=== PATIENT | female | born 1960 | race Caucasian/White ===

== ENCOUNTER 2020-03-06 06:25 | Day surgery (SDC) | payer MEDICAID ==
[2020-03-06] MEDS ORDERED: Midazolam 1 MG/ML 2 ML SDV ONE (07:01)
[2020-03-06] MEDS ORDERED: Propofol 200 MG/20 ML SDV ONE (07:01)
[2020-03-06] MEDS ORDERED: fentaNYL 100 MCG/2 ML SDV ONE (07:01)
[2020-03-06] MEDS ORDERED: Sodium Chloride 0.9% 1,000 ML IV SCH (07:30)
[2020-03-06 09:06] VITALS: BP 110/61; PULSE 96
--- NOTE | 2020-03-06 13:22 | OR ---
DATE OF PROCEDURE: 03/06/2020 SURGEON: Musa Keith MD PROCEDURE: Colonoscopy. FINDINGS: A transverse colon polyp of approximately 8 mm, completely removed using hot snare wire device. COMPLICATION: None. POWER PLANT MECHANIC: None. PREOPERATIVE DIAGNOSIS: Screening colonoscopy. POSTOPERATIVE DIAGNOSIS: Screening colonoscopy. RISKS: Risks, benefits, alternatives, and limitations including, but not limited to, infection, bleeding, and perforation were explained to the patient, who wished to proceed. PROCEDURE IN DETAIL: The patient was placed in left lateral decubitus position. Digital rectal exam was performed without abnormality. Scope was introduced and advanced atraumatically to the ileocecal valve. A photo was taken. The scope was brought back through the ascending, transverse, descending colon, and retroflexed. No diverticulosis. No old or new blood. Within the transverse colon, the aforementioned polyp was identified and completely removed as described above. No abnormal bleeding after removal. No abnormalities on retroflexion. The patient tolerated the procedure well. Musa Keith MD /[id number]
== END 2020-03-06 09:15 | disposition home or self-care (01) ==
LOC: JP.SDS 06:25
PROVIDERS: ATTEND Surgery
DX: Z12.11 Encounter for screening for malignant neoplasm of colon (principal); D12.3 Benign neoplasm of transverse colon; J44.9 Chronic obstructive pulmonary disease, unspecified; F17.200 Nicotine dependence, unspecified, uncomplicated; E78.5 Hyperlipidemia, unspecified; I10 Essential (primary) hypertension; Z88.2 Allergy status to sulfonamides
CPT/HCPCS: 45385; J2250; J2704; J3010; J7030

== ENCOUNTER 2020-08-18 09:46 | Emergency (ER) | payer MEDICAID ==
[2020-08-18 10:05] VITALS: BP 148/88; PULSE 90
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
--- NOTE | 2020-08-18 11:09 | CR ---
CHEST: 2 view CLINICAL HISTORY:Dyspnea COMPARISON:CT 2015 FINDINGS: Lungs are mildly hyperaerated. Heart and pulmonary vascular normal. There are atherosclerotic changes in the aorta. No infiltrates are seen. There is blunting of both lateral costophrenic angles which is likely due to pleural thickening. Impression: Hyperaeration Pleural scarring or thickening in both lung bases.
[2020-08-18] MEDS ORDERED: methylPREDNISolone Sodium Succinate 125 MG/2 ML SDV IVPUSH ONE (11:45)
== END 2020-08-18 12:16 | disposition home or self-care (01) ==
LOC: JP.ED 09:46
DX: J44.9 Chronic obstructive pulmonary disease, unspecified (principal); I25.10 Atherosclerotic heart disease of native coronary artery without angina pectoris; F17.200 Nicotine dependence, unspecified, uncomplicated; E78.00 Pure hypercholesterolemia, unspecified; I10 Essential (primary) hypertension; Z79.899 Other long term (current) drug therapy; Z88.6 Allergy status to analgesic agent; Z88.2 Allergy status to sulfonamides; Z95.5 Presence of coronary angioplasty implant and graft; Z59.0 Homelessness
CPT/HCPCS: 36415; 71046; 80048; 84484; 85025; 85379; 96374; 99284; 99285; J2930

== ENCOUNTER 2024-06-22 03:01 | Emergency (ER) | payer MEDICARE ==
[2024-06-22 03:06] LABS: BASE EXCESS VENOUS 1.9 mm/L; BASOPHILS ABSOLUTE AUTO 0.05 K/uL (0.00-0.10); BASOPHILS PERCENT AUTO 0.7 % (0.1-1.3); BICARBONATE,VENOUS 27.1 mmol/L; CARBOXYHEMOGLOBIN 2.2 % (0.0-1.6); EOSINOPHILS ABSOLUTE AUTO 0.15 K/uL (0.00-0.40); HEMATOCRIT 41.3 % (34.3-46.0); HEMOGLOBIN 14.6 g/dL (11.2-15.5); IMMATURE GRAN ABSOLUTE AUTO 0.06 K/uL (0.00-0.23); IMMATURE GRAN PERCENT AUTO 0.8 % (0.0-0.7); LYMPHOCYTES ABSOLUTE AUTO 2.15 K/uL (0.8-3.3); LYMPHOCYTES PERCENT AUTO 28.6 % (11.4-47.7); MEAN CORPUSCULAR HEMOGLOBIN 35.7 pg (31.6-35.5); MEAN CORPUSCULAR HGB CONC 35.4 g/dL (31.6-35.5); METHEMOGLOBIN 0.9 %; MONOCYTES ABSOLUTE AUTO 0.85 K/uL (0.20-0.90); MONOCYTES PERCENT AUTO 11.3 % (3.3-12.6); NEUTROPHILS ABSOLUTE AUTO 4.27 K/uL (1.0-7.6); NEUTROPHILS PERCENT AUTO 56.6 % (40.0-78.1); O2 SATURATION VENOUS 67.5; OXYHEMOGLOBIN 65.4 %; PCO2 VENOUS 46.4 mm/Hg; PH,VENOUS 7.384 (7.350-7.450); PLATELET COUNT,PLT 146 K/uL (130-375); PO2 VENOUS 41.4 mm/Hg; RED BLOOD CELL COUNT 4.09 M/uL (3.77-5.24); TOTAL HEMOGLOBIN 15.2 g/dL (12.0-16.0); WHITE BLOOD CELL COUNT,WBC 7.5 K/uL (3.2-11.0)
[2024-06-22] MEDS ORDERED: Propofol 200 MG/20 ML SDV ONE (03:08)
[2024-06-22 03:27] LABS: BLOOD UREA NITROGEN,BUN 4 mg/dL (7-18); CALCIUM 9.3 mg/dL (8.5-10.1); CARBON DIOXIDE,CO2 28 mmol/L (21-32); CHLORIDE,CL 94 mmol/L (100-108); CREATININE 0.5 mg/dL (0.6-1.0); ESTIMATED GFR 103 mL/min (>60); GLUCOSE RANDOM 99 mg/dL (74-106); POTASSIUM,K 3.6 mmol/L (3.6-5.2); SODIUM,NA 134 mmol/L (140-148); TROPONIN I HIGH SENSITIVITY 40.1 pg/mL (<=60.3)
[2024-06-22 03:28] LABS: ANION GAP 15.6 mmol/L (5.0-14.0)
[2024-06-22] MEDS ORDERED: Naloxone 0.4 MG/ML SDV IVPUSH PRN (03:56)
[2024-06-22] MEDS: HYDROmorphone 0.5 MG/0.5 ML Syringe IVPUSH ONE (04:00)
[2024-06-22] MEDS: Ondansetron 4 MG/2 ML SDV IVPUSH ONE ×2 (04:05→08:08)
[2024-06-22] MEDS: Ondansetron 4 MG/2 ML SDV ONE (04:08)
[2024-06-22] MEDS: Iopamidol 755 Mg/ML 100 ML Bottle IV STA (04:14)
[2024-06-22] MEDS: Sodium Chloride 0.9% 100 ML IV STA (04:15)
[2024-06-22 06:02] LABS: INR 1.1; PROTHROMBIN TIME 10.8 sec (9.2-10.6)
[2024-06-22] MEDS: Apixaban 5 MG Tab PO ONE (06:06)
[2024-06-22 06:08] LABS: A/G RATIO 1.1 (1.2-2.2); ALBUMIN 3.5 g/dL (3.4-5.0); BILIRUBIN DIRECT 0.38 mg/dL (0.0-0.2); BILIRUBIN INDIRECT 0.62; PROTEIN TOTAL,TP 6.6 g/dL (6.4-8.2)
[2024-06-22 07:44] VITALS: PULSE 97
[2024-06-22] MEDS: Prochlorperazine 10 MG/2 ML SDV IVPUSH ONE (09:41)
[2024-06-22 09:56] VITALS: BP 157/81
== END 2024-06-22 11:02 | disposition home or self-care (01) ==
LOC: JP.ED 03:01
DX: I48.91 Unspecified atrial fibrillation (principal); I25.10 Atherosclerotic heart disease of native coronary artery without angina pectoris; I10 Essential (primary) hypertension; E78.00 Pure hypercholesterolemia, unspecified; J44.9 Chronic obstructive pulmonary disease, unspecified; F17.210 Nicotine dependence, cigarettes, uncomplicated; Z86.16 Personal history of COVID-19; Z90.49 Acquired absence of other specified parts of digestive tract; Z90.722 Acquired absence of ovaries, bilateral; Z95.5 Presence of coronary angioplasty implant and graft; Z88.2 Allergy status to sulfonamides; Z88.6 Allergy status to analgesic agent; Z79.51 Long term (current) use of inhaled steroids; Z79.899 Other long term (current) drug therapy
CPT/HCPCS: 36415; 71275; 74175; 80048; 80076; 80307; 82803; 84484; 85025; 85379; 85610; 93005; 96374; 96375; 96376; 99285; A9270; J0780; J1171; J2405; J2704; J3490; Q9967; 93010

== ENCOUNTER 2024-07-05 12:55 | Emergency (ER) | payer MEDICARE ==
[2024-07-05 13:49] LABS: BASOPHILS ABSOLUTE AUTO 0.09 K/uL (0.00-0.10); BASOPHILS PERCENT AUTO 1.1 % (0.1-1.3); EOSINOPHILS ABSOLUTE AUTO 0.05 K/uL (0.00-0.40); EOSINOPHILS PERCENT AUTO 0.6 % (0.0-5.4); HEMATOCRIT 38.8 % (34.3-46.0); HEMOGLOBIN 14.2 g/dL (11.2-15.5); IMMATURE GRAN ABSOLUTE AUTO 0.04 K/uL (0.00-0.23); IMMATURE GRAN PERCENT AUTO 0.5 % (0.0-0.7); LYMPHOCYTES ABSOLUTE AUTO 1.52 K/uL (0.8-3.3); LYMPHOCYTES PERCENT AUTO 17.8 % (11.4-47.7); MEAN CORPUSCULAR HEMOGLOBIN 35.9 pg (31.6-35.5); MEAN CORPUSCULAR HGB CONC 36.6 g/dL (31.6-35.5); MONOCYTES ABSOLUTE AUTO 0.61 K/uL (0.20-0.90); MONOCYTES PERCENT AUTO 7.1 % (3.3-12.6); NEUTROPHILS ABSOLUTE AUTO 6.23 K/uL (1.0-7.6); NEUTROPHILS PERCENT AUTO 72.9 % (40.0-78.1); PLATELET COUNT,PLT 357 K/uL (130-375); RED BLOOD CELL COUNT 3.96 M/uL (3.77-5.24); WHITE BLOOD CELL COUNT,WBC 8.5 K/uL (3.2-11.0)
[2024-07-05] MEDS: Metoprolol Tartrate 25 MG Tab PO ONE (14:05)
[2024-07-05] MEDS: LORazepam 1 MG Tab PO ONE (14:07)
[2024-07-05 14:14] LABS: ALANINE AMINOTRANSFERASE,ALT 153 U/L (12-78); ALBUMIN 3.2 g/dL (3.4-5.0); ALKALINE PHOSPHATASE 166 U/L (46-116); ASPARTATE AMNIOTRANSFERASE,AST 185 U/L (15-37); BILIRUBIN TOTAL 0.4 mg/dL (0.2-1.0); BLOOD UREA NITROGEN,BUN 12 mg/dL (7-18); CARBON DIOXIDE,CO2 27 mmol/L (21-32); CHLORIDE,CL 100 mmol/L (100-108); CREATININE 0.5 mg/dL (0.6-1.0); EST CRCL DRUG DOSING (CG) 83.52 mL/min; ESTIMATED GFR 103 mL/min (>60); GLUCOSE RANDOM 81 mg/dL (74-106); POTASSIUM,K 3.6 mmol/L (3.6-5.2); PROTEIN TOTAL,TP 6.4 g/dL (6.4-8.2); SODIUM,NA 139 mmol/L (140-148)
[2024-07-05 14:17] LABS: ANION GAP 15.6 mmol/L (5.0-14.0)
[2024-07-05] MEDS: Aspirin 81 MG Tab.Chew PO ONE (14:48)
[2024-07-05 15:28] VITALS: BP 154/87; PULSE 100
== END 2024-07-05 16:24 | disposition home or self-care (01) ==
LOC: JP.ED 12:55
DX: I48.92 Unspecified atrial flutter (principal); F10.129 Alcohol abuse with intoxication, unspecified; I10 Essential (primary) hypertension; E78.00 Pure hypercholesterolemia, unspecified; I25.10 Atherosclerotic heart disease of native coronary artery without angina pectoris; Z86.16 Personal history of COVID-19; Z90.49 Acquired absence of other specified parts of digestive tract; Z79.899 Other long term (current) drug therapy; Z88.8 Allergy status to other drugs, medicaments and biological substances; Z88.2 Allergy status to sulfonamides
CPT/HCPCS: 36415; 80053; 80307; 83690; 84484; 85025; 93005; 99285; A9270

== ENCOUNTER 2025-05-08 05:13 | Emergency (ER) | payer MEDICARE ==
[2025-05-08 05:57] LABS: BASOPHILS ABSOLUTE AUTO 0.10 K/uL (0.00-0.10); BASOPHILS PERCENT AUTO 0.4 % (0.1-1.3); EOSINOPHILS ABSOLUTE AUTO 0.13 K/uL (0.00-0.40); EOSINOPHILS PERCENT AUTO 0.6 % (0.0-5.4); IMMATURE GRAN ABSOLUTE AUTO 0.23 K/uL (0.00-0.23); IMMATURE GRAN PERCENT AUTO 1.0 % (0.0-0.7); LYMPHOCYTES ABSOLUTE AUTO 2.46 K/uL (0.8-3.3); LYMPHOCYTES PERCENT AUTO 10.5 % (11.4-47.7); MONOCYTES ABSOLUTE AUTO 1.25 K/uL (0.20-0.90); MONOCYTES PERCENT AUTO 5.3 % (3.3-12.6); NEUTROPHILS ABSOLUTE AUTO 19.29 K/uL (1.0-7.6); NEUTROPHILS PERCENT AUTO 82.2 % (40.0-78.1); PLATELET COUNT,PLT 254 K/uL (130-375); RED BLOOD CELL COUNT 4.18 M/uL (3.77-5.24); WHITE BLOOD CELL COUNT,WBC 23.5 K/uL (3.2-11.0)
[2025-05-08 06:14] LABS: A/G RATIO 1.0 (1.2-2.2); ALANINE AMINOTRANSFERASE,ALT 24 U/L (12-78); ASPARTATE AMNIOTRANSFERASE,AST 18 U/L (15-37); BILIRUBIN TOTAL 1.3 mg/dL (0.2-1.0); BLOOD UREA NITROGEN,BUN 5 mg/dL (7-18); CARBON DIOXIDE,CO2 26 mmol/L (21-32); CHLORIDE,CL 92 mmol/L (100-108); CREATININE 0.4 mg/dL (0.6-1.0); EST CRCL DRUG DOSING (CG) 102.99 mL/min; ESTIMATED GFR 108 mL/min (>60); GLUCOSE RANDOM 123 mg/dL (74-106); POTASSIUM,K 3.6 mmol/L (3.6-5.2); PROTEIN TOTAL,TP 6.6 g/dL (6.4-8.2); SODIUM,NA 126 mmol/L (140-148)
[2025-05-08] MEDS: Albuterol 0.083% 2.5 MG/3 ML Neb Soln NEB ONE (06:23)
[2025-05-08 06:42] LABS: APPEARANCE,URINE SLIGHTLY CLOUDY (CLEAR); GLUCOSE,URINE NEGATIVE (NEGATIVE); OCCULT BLOOD,URINE TRACE-INTACT (NEGATIVE)
[2025-05-08 07:13] LABS: SQUAMOUS EPITHELIAL CELLS,UR FEW /HPF; UROTHELIAL CELLS,URINE NOT SEEN /HPF
[2025-05-08] MEDS: Magnesium Sulfate 2 GM/50 mL 2 GM in Premix Bag 1 BAG IV ONE (07:21)
[2025-05-08 08:37] VITALS: BP 94/55; PULSE 102
== END 2025-05-08 09:45 | disposition home or self-care (01) ==
LOC: JP.ED 05:13
DX: J18.9 Pneumonia, unspecified organism (principal); I25.10 Atherosclerotic heart disease of native coronary artery without angina pectoris; I10 Essential (primary) hypertension; E78.00 Pure hypercholesterolemia, unspecified; F17.210 Nicotine dependence, cigarettes, uncomplicated; Z86.16 Personal history of COVID-19; Z79.899 Other long term (current) drug therapy; Z88.5 Allergy status to narcotic agent; Z88.2 Allergy status to sulfonamides
CPT/HCPCS: 36415; 71045; 80053; 81001; 83735; 85025; 94640; 96365; 96366; 96367; 99285; A9270; J0696; J3475; J7030

== ENCOUNTER 2025-05-19 08:50 | Day surgery (SDC) | payer MEDICARE ==
[~2025-05-19 08:50] MED LIST: Lactated Ringers 1,000 ML IV SCH
[2025-05-19] MEDS: Lactated Ringers 1,000 ML IV SCH (09:31)
[2025-05-19] MEDS ORDERED: fentaNYL 50 MCG/ML SDV ONE (10:47)
[2025-05-19] MEDS ORDERED: Propofol 200 MG/20 ML SDV ONE (10:47)
[2025-05-19 12:40] VITALS: BP 132/96; PULSE 96
== END 2025-05-19 12:55 | disposition home or self-care (01) ==
LOC: JP.SDS 08:50
PROVIDERS: ATTEND Surgery
DX: Z12.11 Encounter for screening for malignant neoplasm of colon (principal); D12.5 Benign neoplasm of sigmoid colon; I48.91 Unspecified atrial fibrillation; I10 Essential (primary) hypertension; I25.10 Atherosclerotic heart disease of native coronary artery without angina pectoris; E78.00 Pure hypercholesterolemia, unspecified; Z88.8 Allergy status to other drugs, medicaments and biological substances; Z88.2 Allergy status to sulfonamides; Z79.899 Other long term (current) drug therapy
CPT/HCPCS: 00811; 45385; 94640; A9270; J2704; J3010; J7120